=== PATIENT | female | born 1990 | race Caucasian/White ===

== ENCOUNTER 2018-01-05 20:45 | Emergency (ER) | payer BC, OTHER, SELFPAY ==
[2018-01-05 21:02] VITALS: BP 131/84; PULSE 66; RESP 20; TEMP 36.9; O2SAT 99
[2018-01-05 22:38] VITALS: BP 124/78; PULSE 72; RESP 18; O2SAT 100
--- NOTE | 2018-01-05 22:48 | ED.ABDPAIN ---
HPI - Abdominal Pain General Chief Complaint: Abdominal Pain Stated Complaint: STOMACH PAINS Time Seen by Provider: 01/05/18 21:46 Source: patient Mode of arrival: ambulatory Limitations: no limitations History of Present Illness HPI narrative: 27-year-old female here for evaluation of upper abdominal pain and vaginal bleeding. Patient states that her symptoms started approximately 3 days ago. She states she did have a at the end of last year. Was on oral control until the beginning of this year but stopped it because she had continuous bleeding. She states she has not had a menstrual cycle since then. She states she is breast feeding. Has had her appendix out. Has taken some Tylenol at home for the abdominal pain which has not helped. She states that the vaginal bleeding is very similar to what it was like after her . No fevers. No urinary symptoms no bowel changes. Related Data Home Medications Medication Instructions Recorded Confirmed Vitamins (PRENAVITE) 1 tab PO QDAY #0 06/19/16 Previous Rx's Medication Instructions Recorded clindamycin HCl 300 mg PO QID #28 cap 07/23/17 Allergies Allergy/AdvReac Type Severity Reaction Status Date / Time Penicillins [PENICILLINS] Allergy Unknown Unverified 09/23/17 12:39 Review of Systems Constitutional Denies fatigue and Denies fever(s) Cardiovascular Denies chest pain and Denies dyspnea Respiratory Denies dyspnea Gastrointestinal Gastrointestinal: Reports abdominal pain, Denies change in stool character, Denies coffee ground emesis, Denies diarrhea and Denies vomiting Genitourinary Reports abnormal vaginal bleeding, Denies dysuria and Denies flank pain Musculoskeletal Denies myalgias and Denies arthralgias Integumentary/Breasts Denies lesions and Denies rash Endocrine Denies fatigue [facility] Surgical History Status post appendectomy Status post surgery (06/29/17) Family History Grandmother Age: 79 Malignant neoplasm of female breast, unspecified laterality, unspecified site of breast Type 2 diabetes mellitus Cerebrovascular accident (CVA), unspecified mechanism Exam Initial Vital Signs Initial Vital Signs: Vital Signs Temperature 98.5 F 01/05/18 21:02 Pulse Rate 66 01/05/18 21:02 Respiratory Rate 20 01/05/18 21:02 Blood Pressure 131/84 H 01/05/18 21:02 Pulse Oximetry 99 01/05/18 21:02 Const General: cooperative, healthy appearing, well developed, well groomed and No acute distress Orientation: alert, awake and oriented x3 HENMT Head: normal to inspection, normocephalic and atraumatic GI Inspection: normal to inspection and non-distended Palpation: soft, No firm, No guarding and tender ( Epigastric) Skin General: no rashes or lesions noted Lesions: no lesions Rashes: no rashes Neuro General: alert, awake and oriented x3 Extrem General: normal to inspection Psych Appearance: grossly normal and well kempt Course Orders Ordered: ED Orders 01/05/18 23:07 Complete Blood Count AUTO DIFF Stat Comprehensive Metabolic Panel Stat Lipase Stat 01/05/18 23:10 Urine Microscopic Stat Discontinued Medications Hydrocodone Bitart/Acetaminophen ([place] 5/325) 1 tab PO NOW ONE Stop: 01/05/18 22:48 Last Admin: 01/05/18 23:07 Dose: 1 tab Vital Signs - 8 hr 01/05/18 21:02 01/05/18 22:38 01/06/18 00:16 Temperature 98.5 F 97.8 F Pulse Rate 66 72 53 L Respiratory Rate 20 18 16 Blood Pressure 131/84 H 110/74 Blood Pressure [Right Arm] 124/78 H Pulse Oximetry 99 100 99 MDM - Abdominal Pain Lab Data Attestation: I reviewed the patient's lab results. Result diagrams: 01/05/18 23:07 01/05/18 23:07 Lab Results 01/05/18 01/05/18 01/05/18 Range/Units 23:07 23:07 23:10 WBC 4.4 L (4.5-11.0) X10^3/uL RBC 4.38 (4.0-5.2) X10^6/uL Hgb 13.9 (12.0-16.0) g/dL Hct 39.8 (36-46) % MCV 90.8 (80-100) fL MCH 31.8 (26-34) PG MCHC 35.1 (30-36) % RDW 13.6 (11.6-14.8) % Plt Count 200 (150-400) X10^3/uL Neut % (Auto) 48.1 L (50-75) % Lymph % (Auto) 40.0 (25-40) % [place] % (Auto) 9.5 (3-14) % Eos % (Auto) 1.9 L (2-4) % Baso % (Auto) 0.5 (0-2) % Neut # (Auto) 2100 L (0757-7374) /uL Sodium 141 (137-145) mmol/L Potassium 3.7 (3.4-5.1) mmol/L Chloride 104 (98-107) mmol/L Carbon Dioxide 28 (22-32) mmol/L BUN 10 (7-17) mg/dL Creatinine 0.70 (0.52-1.04) mg/dL Estimated GFR > 60.0 (>60) mL/min BUN/Creatinine Ratio 14.3 (6-22) Glucose 85 (70-100) mg/dL Calcium 9.3 (8.4-10.2) mg/dL Total Bilirubin 1.8 H (0.2-1.3) mg/dL AST 16 (14-36) IU/L ALT 17 (9-52) IU/L Alkaline Phosphatase 89 (38-126) U/L Total Protein 6.6 (6.3-8.2) g/dL Albumin 4.2 (3.5-5.0) g/dL Globulin 2.4 (1.7-4.1) g/dL Albumin/Globulin Ratio 1.8 (1.0-2.8) Lipase 50 (23-300) U/L Urine RBC >100/hpf H (0-5/HPF) Urine WBC 0-1/hpf (0-5/HPF) Ur Squamous Epith Cells 5-10 /hpf H Calcium Oxalate Crystal Few H (None) Urine Bacteria Occasional (0-1) (None) Ur Culture Indicated? Cult not indicated Micro UA Comment Not Reportable Point of care testing: Point of Care Testing Test Results Negative Urine Dip Bedside Urine Glucose Negative Bedside Urine Bilirubin - Negative Bedside Urine Ketone - Negative Urine Specific [place] 1.020 Bedside Urine Occult Blood +++ Bedside Urine pH 6.0 Bedside Urine Protein + 30 Bedside Urine Urobilinogen - Negative Bedside Urine Nitrite - Negative Bedside Urine Leukocytes - Negative Esterase MDM Narrative Medical decision making narrative: test is negative. Urinalysis shows blood in the urine however no other signs of infection. Patient has a benign abdominal exam. Labs unremarkable. LFTs unremarkable. Considered gallbladder pathology however patient does not have Benedict sign and has normal LFTs and lipase. Patient has had her appendix out. Will hold on any radiologic studies for now. I suspect that her vaginal bleeding is a normal menstrual cycle versus breakthrough bleeding. She is not on any sort of control and has not had a period since the beginning of this year when she stopped control. Her abdominal pain does seem to be higher than what I would expect for menstrual cramps However this pain could be the result of that. Will hold on pelvic ultrasound for now. Patient reluctant to take medications secondary to the fact that she is breast feeding. We did discuss that the [place] that she received here in the emergency department would be excreted in her breast milk. I recommended that she pump and dump for the next 24 hr. We did discuss this prior to her taking the [place] And she expressed understanding and agreement. Patient was instructed to contact her primary care doctor for follow-up. No acute surgical pathology was found today. She expressed understanding and agreement with plan. Discharge Plan Departure Patient Disposition: Home, Self-Care Clinical Impression: Abdominal pain, Vaginal bleeding Discharge Date/Time: 01/06/18 00:18 Interventions: ED Discharge Assessment Last Done: 01/06/18 00:16 Instructions: DI for Abdominal Pain-Adult Activity Restrictions/Additional Instructions: would recommend that you take Tylenol/ acetaminophen and/or Motrin / ibuprofen for the abdominal pain. Call your OB doctor tomorrow for a follow-up in 2 discussed your vaginal bleeding and any potential control pills. Return to the emergency department for any new or worsening symptoms. Prescriptions: No Action Vitamins (PRENAVITE) 1 tab PO QDAY Qty: 0 RF: 0 clindamycin HCl 300 MG capsule 300 mg PO QID Qty: 28 RF: 0
[2018-01-05] MEDS: HYDROCODONE/ACET 5/325 TABLET 1 TAB PO (23:07)
--- NOTE | 2018-01-05 23:07 | PC.NURSE ---
pt given maria isabel correia per approval to emmie rowe. Lab at drawing blood
[2018-01-05 23:12] LABS: Add Manual Diff / Slide Review NO; Basophils Percent Auto 0.5 % (0-2); Eosinophils Percent Auto 1.9 % (2-4); Hematocrit 39.8 % (36-46); Hemoglobin 13.9 g/dL (12.0-16.0); Mean Corpuscular HGB Conc 35.1 % (30-36); Mean Corpuscular Hemoglobin 31.8 PG (26-34); Mean Corpuscular Volume 90.8 fL (80-100); Monocytes Percent Auto 9.5 % (3-14); Neutrophils Absolute Auto 2100 /uL (3000-5900); Neutrophils Percent Auto 48.1 % (50-75); Platelet Count 200 X10^3/uL (150-400); Red Blood Cell Count 4.38 X10^6/uL (4.0-5.2); Red Cell Distribution Width 13.6 % (11.6-14.8); White Blood Cell Count 4.4 X10^3/uL (4.5-11.0)
[2018-01-05 23:21] LABS: RBC Urine >100/HPF (0-5/HPF); Squamous Epithelial Cell Urine 5-10 /HPF; WBC Urine 0-1/HPF (0-5/HPF)
[2018-01-05 23:22] LABS: Bacteria Urine Occasional (0-1); Calcium Oxalate Crystals Urine Few; Culture Indicated Urine Cult Not Indicated
[2018-01-05 23:23] LABS: Alanine Aminotransferase 17 IU/L (9-52); Albumin 4.2 g/dL (3.5-5.0); Albumin Globulin Ratio 1.8 (1.0-2.8); Alkaline Phosphatase 89 U/L (38-126); Aspartate Aminotransferase 16 IU/L (14-36); BUN Creatinine Ratio 14.3 (6-22); Bilirubin Total 1.8 mg/dL (0.2-1.3); Blood Urea Nitrogen 10 mg/dL (7-17); Calcium 9.3 mg/dL (8.4-10.2); Carbon Dioxide 28 mmol/L (22-32); Chloride 104 mmol/L (98-107); Estimated Glomerular Filt Rate > 60.0 mL/min (>60); Globulin 2.4 g/dL (1.7-4.1); Glucose 85 mg/dL (70-100); HEMOLYSIS < 15 (0-50); Lipase 50 U/L (23-300); Potassium 3.7 mmol/L (3.4-5.1); Sodium 141 mmol/L (137-145); Total Protein 6.6 g/dL (6.3-8.2)
[2018-01-06 00:16] VITALS: BP 110/74; PULSE 53; RESP 16; TEMP 36.6; O2SAT 99
== END 2018-01-06 00:18 | disposition home or self-care (01) ==
PROVIDERS: Emergency Provider Emergency Medicine; Family Provider Specialist; PCP Specialist
DX: N93.9 Abnormal uterine and vaginal bleeding, unspecified (principal); R10.9 Unspecified abdominal pain
CPT/HCPCS: 36415; 80053; 81003; 81015; 81025; 83690; 85025; 99282; 99283

== ENCOUNTER → 2020-07-30 11:32 | Outpatient (CLI) | payer BC, SELFPAY ==
[2020-07-30 12:14] LABS: Appearance Urine UA CLEAR; Bilirubin Urine UA NEGATIVE (NEGATIVE); Color Urine UA YELLOW; Glucose Urine UA NEGATIVE (Negative); Ketones Urine UA NEGATIVE (NEGATIVE); Leukocyte Esterase Urine UA NEGATIVE (NEGATIVE); Nitrite Urine UA NEGATIVE (Negative); Occult Blood Urine UA NEGATIVE (Negative); Protein Urine UA NEGATIVE (Negative)
[2020-07-30 12:35] LABS: Add Manual Diff / Slide Review NO; Basophils Absolute Auto 0 /uL (0-100); Basophils Percent Auto 0.3 % (0-2); Eosinophils Absolute Auto 0 /uL (0-450); Eosinophils Percent Auto 0.5 % (2-4); Hematocrit 40.4 % (36-46); Hemoglobin 14.6 g/dL (12.0-16.0); Lymphocytes Absolute Auto 1400 /uL (1100-4500); Lymphocytes Percent Auto 22.9 % (25-40); Mean Corpuscular HGB Conc 36.1 % (30-36); Mean Corpuscular Hemoglobin 32.5 PG (26-34); Mean Corpuscular Volume 90.1 fL (80-100); Monocytes Absolute Auto 300 /uL (0-900); Monocytes Percent Auto 5.6 % (3-14); Neutrophils Absolute Auto 4200 /uL (1500-7000); Neutrophils Percent Auto 70.7 % (50-75); Platelet Count 232 X10^3/uL (150-400); Red Blood Cell Count 4.49 X10^6/uL (4.0-5.2); Red Cell Distribution Width 13.4 % (11.6-14.8)
[2020-07-30 15:47] LABS: Hepatitis B Surface Antigen NEGATIVE s/c (NEGATIVE); Rubella Antibody IgG 51.9 IU/mL (>15)
[2020-07-30 16:10] LABS: HIV 1 & 2 Ab/Ag 4th Gen Combo NEGATIVE (NEGATIVE); Hep C Virus Ab w/Reflex Quant NEGATIVE s/c (NEGATIVE)
[2020-07-30 16:12] LABS: Urine N gonorrhoeae NOT DETECTED
[2020-07-30 16:18] LABS: Urine Chlamydia NOT DETECTED
[2020-07-31 08:13] LABS: RPR Screen Non Reactive (Non Reactive)
[2020-07-31 11:51] LABS: Varicella IgG Antibody 2514 index (Immune >165)
== END ==
PROVIDERS: Family Provider Specialist; Referring Provider Specialist; Visit Provider Specialist
DX: Z34.81 Encounter for supervision of other normal pregnancy, first trimester (principal); Z3A.08 8 weeks gestation of pregnancy
CPT/HCPCS: 36415; 80055; 81003; 86787; 86803; 86850; 86900; 86901; 87086; 87389; 87491; 87591

== ENCOUNTER → 2020-09-26 11:55 | Outpatient (CLI) | payer BC, SELFPAY ==
[2020-09-28 19:38] LABS: AFP, Serum 46.8 ng/mL (.); Calc Gestational Age Ultrasound (.); Estriol, Free 1.23 ng/mL (.); Inhibin A, Dimeric 134.44 pg/mL (.); Inhibin A, MoM 0.86 (.); Maternal Ethnicity Caucasian (.); Maternal Weight 147 lbs (.); Number of Fetuses No (.); OSBR Risk 1 IN 6916 (.); Results Report (.); Test Results *Screen Negative* (.); hCG, MoM 1.43 (.); hCG, Serum 47654 mIU/mL (.)
== END ==
PROVIDERS: Family Provider Specialist; Referring Provider Specialist; Visit Provider Specialist
DX: Z34.82 Encounter for supervision of other normal pregnancy, second trimester (principal); Z3A.17 17 weeks gestation of pregnancy
CPT/HCPCS: 36415; 82105; 82677; 84702; 86336

== ENCOUNTER → 2020-10-17 10:26 | Outpatient (CLI) | payer BC, SELFPAY ==
--- NOTE | 2020-10-17 10:27 | DI.US.S_ITS ---
PROCEDURE: US OB >= 14 WEEKS FETUS INDICATIONS: 20 week anatomy OUTSIDE/PRIOR DATING DATA: Last menstrual period (LMP): 05/29/2020 . LMP-based estimated date of delivery (GARCIA): 03/05/2021 . First dating scan (date and location): 07/30/2020, [facility] . Estimated date of delivery (GARCIA) from first dating scan: 03/06/2021 . TECHNIQUE: Real-time scanning was performed of the fetus, with image documentation and biometric measurements. COMPARISON: None. FINDINGS: General: A single living intrauterine gestation is present. Presentation: Vertex. Placenta: Placental position is fundal , without previa. Amniotic fluid index: 12.1 cm, normal range is 5-24 cm. heart rate: 137 beats per minute. Maternal cervical canal: 4.3 cm long. Normal lower limit is 2.5 cm. biometrics: Biparietal diameter: 4.7 cm, 20 week 2 day Head circumference: 17.4 cm, 20 week 0 day Abdominal circumference: 15.8 cm, 20 week 6 day Femur length: 3.5 cm, 21 week 0 day Estimated gestational age from initial scan: 20 week 0 day Composite gestational age from present scan: 20 week 4 day Estimated weight and percentile: 378, 87 percentile Measurement variability for biometric dating: +/- 7 days from 14 weeks to 15 weeks 6 days gestation, +/- 10 days from 16 weeks to 21 weeks 6 days gestation, +/- 2 weeks from 22 weeks to 27 weeks 6 days gestation, +/- 3 weeks for 28 weeks gestation or later. weight reference: 4500 g or EFW >90/95% is considered macrosomia or large for gestational age. EFW <10% is small for gestational age. EFW 5% or less is considered intra-uterine growth restriction. Anatomic survey: Neuro: Ventricles are non-dilated at less than 10 mm. Cisterna magna is normal at 3-11 mm. Cerebellum is normal in size and morphology. Nuchal skin fold: Normal at less than 6 mm between 14-21 weeks gestational age. Face: Nose and lips, facial profile are normal. Spine: No evidence for spina bifida. Heart: 4-chambered heart is present, with normal ventricular outflow tracts. Diaphragm: Diaphragm is intact. Stomach: Left-sided stomach is present. Kidneys: No hydronephrosis. Normal is less than 5 mm in 2nd trimester, less than 7 mm in 3rd trimester. Cord: 3-vessel cord has orthotopic insertion. Bladder: Normal in size. Extremities: All 4 extremities identified. IMPRESSION: Single live intrauterine consistent with a 20 week 4 day gestation Dictated by: Last Bond M.D. on 10/17/2020 at 11:53 Approved by: Last Bond M.D. on 10/17/2020 at 12:03
== END ==
PROVIDERS: Family Provider Specialist; Referring Provider Specialist; Visit Provider Specialist
DX: Z34.82 Encounter for supervision of other normal pregnancy, second trimester (principal); Z3A.20 20 weeks gestation of pregnancy
CPT/HCPCS: 76811

== ENCOUNTER → 2020-11-30 14:52 | Outpatient (CLI) | payer BC, SELFPAY ==
[2020-11-30 16:28] LABS: Hematocrit 35.2 % (36-46); Hemoglobin 12.5 g/dL (12.0-16.0)
[2020-11-30 16:52] LABS: GTT (PREG) 1 Hour PP 50gm Dose 82 mg/dL (76-139)
== END ==
PROVIDERS: Family Provider Specialist; PCP Family Medicine; Referring Provider Specialist; Visit Provider Specialist
DX: Z34.82 Encounter for supervision of other normal pregnancy, second trimester (principal); Z3A.21 21 weeks gestation of pregnancy
CPT/HCPCS: 36415; 82950; 85014; 85018

== ENCOUNTER → 2021-02-07 11:26 | Outpatient (CLI) | payer BC, SELFPAY ==
[2021-02-08 09:27] LABS: Strep Grp B PCR NEG for Grp B Strep
== END ==
PROVIDERS: Family Provider Specialist; PCP Family Medicine; Referring Provider Specialist; Visit Provider Specialist
DX: Z34.83 Encounter for supervision of other normal pregnancy, third trimester (principal); Z3A.36 36 weeks gestation of pregnancy
CPT/HCPCS: 87653

== ENCOUNTER 2021-02-20 23:47 | Outpatient (CLI) | payer BC, SELFPAY | END 2021-02-21 00:40 | disposition home or self-care (01) | LOC: LABOR 02-21 00:13 → OB 02-25 06:52 | PROVIDERS: Family Provider Specialist; PCP Family Medicine; Referring Provider Family Medicine; Visit Provider Family Medicine | DX: O26.893 Other specified pregnancy related conditions, third trimester (principal); N89.8 Other specified noninflammatory disorders of vagina; Z3A.38 38 weeks gestation of pregnancy | CPT/HCPCS: 59025; 84112; G0378; G0379 ==

== ENCOUNTER 2021-03-01 04:30 | Inpatient (IN) | payer BC, SELFPAY ==
--- NOTE | 2021-03-01 | PATH_ITS ---
[facility] Accession Number: [id number] . 01 Material submitted: . fallopian tube - BILATERAL FALLOPIAN TUBES . 01 Clinical history: . REPEAT W/BILATERAL SALPINGECTOMIES . 02 Diagnosis: Bilateral Fallopian Tubes, Bilateral Salpingectomies: Bilateral fimbriated fallopian tubes. No evidence of neoplasm. MRV 03/05/2021 1240 Local . 02 Electronically signed: . Prieto Donahue MD, PhD, Pathologist NPI- [id number] . 01 Gross description: . The specimen is received in formalin, labeled bilateral fallopian tubes, and consists of two fallopian tubes measuring 7.1 cm in length by 0.9 cm in diameter and 8.7 cm in length by 0.9 cm in diameter. The serosa is pink-purple and smooth. Sectioning reveals a weldon-pink mucosa and a stellate lumen measuring 0.3 cm in diameter. Manager Action sections of each fallopian tube are submitted, to include the en face margin (blue), central cross-sections, and bisected fimbriae in cassettes A1-A2. ([id number]) /[facility] 03/02/2021 1357 Local . 02 Pathologist provided ICD-10: Z3A.39, Z30.2 . 02 CPT . 615690 Performed at: 01 [facility] [address] [facility], [place], [place] [id number] MD Wellington Renee MD Phone: [phone] Performed at: 02 [facility] [address] [place], [place] [id number] MD Dorys Caldwell MD Phone: [phone]
[2021-03-01 05:14] VITALS: BP 105/69
[2021-03-01] MEDS: fentaNYL 100 MCG/2 ML INJ IV (05:52)
[2021-03-01 05:57] LABS: COVID19 - ADMIT (NP swab/PCR) Negative (Negative)
[2021-03-01] MEDS: TERBUTALINE 1 MG/ML VIAL 0.25 MG SUBCUT (06:03)
[2021-03-01 06:21] LABS: Add Manual Diff / Slide Review NO; Basophils Absolute Auto 0 /uL (0-100); Basophils Percent Auto 0.4 % (0-2); Eosinophils Absolute Auto 100 /uL (0-450); Eosinophils Percent Auto 0.8 % (2-4); Hemoglobin 14.3 g/dL (12.0-16.0); Lymphocytes Absolute Auto 2300 /uL (1100-4500); Lymphocytes Percent Auto 22.2 % (25-40); Mean Corpuscular HGB Conc 34.1 % (30-36); Mean Corpuscular Hemoglobin 32.4 PG (26-34); Mean Corpuscular Volume 95.1 fL (80-100); Monocytes Absolute Auto 1000 /uL (0-900); Monocytes Percent Auto 9.7 % (3-14); Neutrophils Absolute Auto 7000 /uL (1500-7000); Neutrophils Percent Auto 66.9 % (50-75); Platelet Count 157 X10^3/uL (150-400); Red Blood Cell Count 4.41 X10^6/uL (4.0-5.2); Red Cell Distribution Width 15.2 % (11.6-14.8); White Blood Cell Count 10.5 X10^3/uL (4.5-11.0)
--- NOTE | 2021-03-01 06:46 | P.HPOB_ITS ---
OB HPI Date/Time Date of admission: 03/01/21 Date Patient Seen: 03/01/21 Time Patient Seen: 06:46 History of Present Condition Chief complaint: REPEAT W/BILATERAL SALPINGECTOMIES : 2 Para: 1 Estimated Date of Delivery: 03/06/21 Narrative: Daniella Gonzalez is a 30 year old female admitted with spontaneous rupture membranes and contractions with planned section today with bilateral salpingectomies for sterilization Indications Operative indications ( section): previous uterine surgery History of Present care: good care, initiated at week # (8), number of visits (12) and pounds weight gain (42) Dating criteria: LMP confirmed by 1st trimester US Ultrasounds: normal mid trimester US Obstetrical complications: none Preadmission Labs Blood type: B (+) positive -: Antibody screen: negative, GBS status: negative, HBsAG: negative, HIV: negative and RPR/VDLR: negative -: Chlamydia screen: not detected and Gonorrhea screen: not detected -: Rubella: immune and Varicella: immune HCAB: negative Quad screen: Normal 1 hr GTT: 82 Prior (ies) History: 04/19/2017 40 week gestation 9 lb 5 oz for failure to progress, male Evaluation Evaluation Baseline heart rate: 140 Variability: Moderate (11-25) monitor accelerations: Present Monitor Decelerations: Absent Contraction Frequency (minutes): 4 Uterine Contraction Intensity: Moderate Category of Tracing: Reactive Status: Category l [facility] Medical History (Updated 01/16/21 @ 15:10 by Lui Good MD) Anemia due to blood loss, acute Closed fracture of coccyx (~2005) Delivery by section of full-term infant Fracture of thumb, right, closed (~2009) Migraines (~2011) Pneumonia (~08/2019) hemorrhage, delayed (> 24 hrs) Right wrist fracture (~2009) Surgical History (Updated 07/19/20 @ 13:24 by Argentina Mayorga RN) Status post appendectomy (~2011) Status post surgery (06/29/17) [place] teeth extracted (~2009) Family History (Updated 07/19/20 @ 13:35 by Argentina Mayorga RN) Grandmother Age: 82 Malignant neoplasm of female breast, unspecified laterality, unspecified site of breast Type 2 diabetes mellitus Cerebrovascular accident (CVA), unspecified mechanism Mother Hypertension Father No problems noted. Grandfather No problems noted. Grandmother Arthritis Grandfather Pacemaker Social History marital status: number of children: 1 household members: spouse and children lives independently: Yes caregiver/support person: No housing: house pets and animals: Yes (1 cat: aware of precautions; safe with baby.) education level: vocational ([employer]) occupational status: employed current occupational exposures/hazards: Yes (Hair color. Wears gloves & well ventilated.) special silke needs: No seatbelt use: always Smoking Status: Never smoker second hand exposure: No alcohol intake: former (Occasional, pre-.) substance use type: does not use during the past year weight has: remained stable well-balanced diet: daily or most days daily servings fruits/ve-4 caffeine: Yes Type(s) of exercise: walking, bicycling (Cycles 4 times a week. ), running and normal ROM and activity (Active with Toddler.) frequency: daily duration: 30-45 minutes/day Meds Home Medications and Allergies Home Medications Medication Instructions Recorded Confirmed Type prenat.vits,jose,ame-djic-jjiha 1 tab PO DAILY 07/19/20 03/01/21 History Allergies Allergy/AdvReac Type Severity Reaction Status Date / Time Penicillins [PENICILLINS] AdvReac Unknown Unknown Verified 01/16/21 14:35 Review of Systems Review of Systems Narrative: Patient had spontaneous rupture membranes at 2:30 a.m.. She began having painful contractions. No abdominal pain in between the contractions. No headaches, scotomata, epigastric pain. Good movement. Exam Vital Signs (past 8 hours): Blood pressure 105/69, pulse of 83, temperature 35.7? 03/01/21 05:14 Blood Pressure 105/69 Narrative Exam Narrative: HEENT within normal limits. Lungs are clear to auscultation percussion. Heart is regular rate rhythm no S3, S4 murmurs. Abdomen is soft, nontender. Fetus is vertex. Extremities without edema and nontender. Objective Labs Result Diagrams: 03/01/21 05:15 Labs: Laboratory Results - last 24 hr 03/01/21 03/01/21 05:00 05:15 WBC 10.5 RBC 4.41 Hgb 14.3 Hct 42.0 MCV 95.1 MCH 32.4 MCHC 34.1 RDW 15.2 H Plt Count 157 Neut % (Auto) 66.9 Lymph % (Auto) 22.2 L [place] % (Auto) 9.7 Eos % (Auto) 0.8 L Baso % (Auto) 0.4 Neut # (Auto) 7000 Lymph # (Auto) 2300 [place] # (Auto) 1000 H Eos # (Auto) 100 Baso # (Auto) 0 SARS-CoV-2 (PCR) Negative Assessment and Plan Assessment and Plan Assessment and Plan narrative: 39 week gestation in labor with repeat section planned and bilateral tubal ligation
--- NOTE | 2021-03-01 06:46 | PM.PREOP ---
Pre-operative Note COVID-19 COVID-19 status: Negative Result date/Date tested (Pos, Neg/Pending): 03/01/21 Interval Note History & Physical reviewed/Exam performed by Physician: Yes Changes to H&P: No
[2021-03-01] MEDS: CITRIC ACID/SODIUM CITRATE 15 ML SOLUTION 30 ML PO (07:22)
[2021-03-01] MEDS: ONDANSETRON 4 MG/2 ML INJ IV (07:22)
--- NOTE | 2021-03-01 07:31 | SUR.OPER ---
Supine on Padded OR bed, head on pillow, safety belt at thigh, arms secured on padded arm boards at <90 degrees abduction. Bump under right buttock. Legs uncrossed with pillow under knees, gel pad to heels, tape over blanket to lower legs.
[2021-03-01] MEDS: CEFAZOLIN 1 GM VIAL 2 GM IV (08:10)
--- NOTE | 2021-03-01 08:21 | SUR.OPER ---
Viable male delivered via section at 08:20. Cord blood vials x2 and placenta sent with L&D RN.
[2021-03-01] MEDS: LACTATED RINGERS 1,000 ML 120 ML IV (08:50)
[2021-03-01 09:19] VITALS: BP 105/63; PULSE 72; RESP 12; TEMP 36.3; O2SAT 100
[2021-03-01 09:24] VITALS: BP 97/58; PULSE 78; RESP 13; O2SAT 100
--- NOTE | 2021-03-01 09:26 | P.OP_ITS ---
Operative Date/Time/Diagnoses Date of procedure: 03/01/21 Time of procedure: 09:26 Pre-op diagnosis: 39 week gestation with previous section in active labor with wish for sterilization Post-op diagnosis: same Procedure & Clinicians Procedure: Repeat low-transverse section with bilateral salpingectomy Same procedure as scheduled: Yes Indications: Prior section in active labor with wish for sterilization Surgeon: Sheree Edmonds Commodity Buyer: Lui Good Click Yes if Unassisted: No Anesthesia Type: Spinal Operative Notes Findings: Normal tubes, ovaries, uterus. Viable male weighing 8 lb 6 oz with Apgars of 9 and 9 Closure Type: primary Specimen(s): other (Bilateral fallopian tubes) Applied: catheter (Padilla) Estimated Blood Loss (mL): 500 Blood products transfused: none Procedure in detail: The patient was brought to the operating room where she underwent a spinalfor anesthesia. She was placed in a supine position with a left lateral tilt. A [place] catheter was placed. Pulsatile stockings were placed and functional throughout the case. 2 g of Ancef were given IV prior to the incision. Warming was in place. The patient was prepped and draped in usual sterile fashion. A low transverse incision was made with a scalpel and the incision was carried down to the fascial layer which was incised transversely with scissors. The housing assistant property manager did his side of the incision. The midline attachments are superiorly and inferiorly. Some bleeding was controlled Bovie. The rectus muscles were in the midline and the peritoneal incision was ma de with no damage to internal structures. The peritoneum was incised and superiorly and inferiorly. The incision was stretched with the surgeon and housing assistant property manager placing traction. Bladder blade was placed and a bladder flap was developed and the bladder held away from the lower uterine segment. An incision was made in the uterus with the scalpel and the incision was extended with stretching. The head was elevated out of the abdomen and with fundal pressure by the housing assistant property manager the baby was delivered. The infant was bulb suctioned for clear fluid and handed off to the warmer. Cord blood was collected. The placenta delivered spontaneously with traction. The uterus was cleaned with clean laps. The uterine incision was closed in 2 layers of 0 chromic suture the first a running locking layer the second an imbricating layer. The housing assistant property manager was helping to expose the incision. The bladder peritoneum was repaired with 2- 0 Vicryl suture. The tubes and ovaries were observed to be normal. Left fallopian tube was grasped with a Swetha and sequential bites taken on the mesosalpinx and sutured with 2 0 Vicryl suture. The fallopian tube was tied off and removed at the cornua. Same procedure performed on the right side. Gutters were cleaned of any remaining fluids and adequate hemostasis was noted. The perineum was closed with 2-0 Vicryl suture. The fascia layer was closed with 0 Vicryl suture with 2 stitches. The housing assistant property manager repairing half the incision with helping to retract and expose the incision for the other half. The incision was irrigated and adequate hemostasis noted. The incision was closed with interrupted 3-0 Vicryl sutures and then a subcuticular stitch of 4-0 Vicryl suture. Steri-Strips were placed. The uterus was massaged to remove any clots. The patient went to recovery room in good condition. Counts of instruments and sponges were correct. Dr. Good was present throughout the case to assist with retraction, fundal pressure to deliver the , and suturing half the fascia. Complications: none Post-operative Condition: stable Disposition: other ( center) Plan for aftercare: Routine post section
[2021-03-01 09:29] VITALS: BP 105/51; PULSE 105; RESP 12; O2SAT 100
[2021-03-01 09:34] VITALS: BP 100/63; PULSE 81; RESP 12; TEMP 36.2; O2SAT 100
[2021-03-01] MEDS: LACTATED RINGERS 1,000 ML 1000 ML IV (10:10)
[2021-03-01] MEDS: diphenhydrAMINE 50 MG/ML VIAL 25 MG IV (11:44)
[2021-03-01] MEDS: KETOROLAC 30 MG/ML VIAL IV ×2 (14:42→20:51)
[2021-03-01] MEDS: ACETAMINOPHEN 325 MG TABLET 650 MG PO (19:44)
[2021-03-02] MEDS: KETOROLAC 30 MG/ML VIAL IV (03:06)
[2021-03-02] MEDS: ACETAMINOPHEN 325 MG TABLET 650 MG PO ×3 (03:10→20:42)
[2021-03-02] MEDS: OXYCODONE IR 5 MG TABLET PO (06:35)
[2021-03-02 07:04] LABS: Add Manual Diff / Slide Review NO; Basophils Absolute Auto 0 /uL (0-100); Basophils Percent Auto 0.3 % (0-2); Eosinophils Absolute Auto 0 /uL (0-450); Eosinophils Percent Auto 0.4 % (2-4); Hematocrit 33.2 % (36-46); Hemoglobin 11.6 g/dL (12.0-16.0); Lymphocytes Absolute Auto 1700 /uL (1100-4500); Lymphocytes Percent Auto 13.5 % (25-40); Mean Corpuscular Hemoglobin 32.6 PG (26-34); Monocytes Absolute Auto 900 /uL (0-900); Monocytes Percent Auto 6.8 % (3-14); Neutrophils Absolute Auto 10200 /uL (1500-7000); Platelet Count 134 X10^3/uL (150-400); Red Blood Cell Count 3.57 X10^6/uL (4.0-5.2); Red Cell Distribution Width 15.1 % (11.6-14.8); White Blood Cell Count 12.9 X10^3/uL (4.5-11.0)
[2021-03-02] MEDS: DOCUSATE 100 MG CAPSULE 200 MG PO (09:02)
[2021-03-02] MEDS: FERROUS SULFATE 325 MG TABLET PO (09:02)
[2021-03-02] MEDS: IBUPROFEN 600 MG TABLET PO ×3 (09:02→20:42)
--- NOTE | 2021-03-02 09:19 | P.PNOB_ITS ---
Subjective - OB Subjective Patient comments: incisional pain, tolerating diet and other ( Itching likely from spinal narcotic) [place] baby status: doing well and nursing well [place] feeding status: exclusively breast feeding Time Patient Seen: 09:19 Interval history: Postoperative day 1repeat low-transverse section with bilateral salpingectomy Exam Vital Signs (past 8 hours): blood pressure 108/55, pulse of 91, temperature 36.3? Oxygen Delivery Method Room Air Narrative Exam Narrative: Abdomen is soft, nontender. Uterus is firm, at U, appropriately tender. Dressing is clean, dry, intact. Mild lochia. Extremities without edema and nontender. Objective Labs Result Diagrams: 03/02/21 07:00 Labs: Laboratory Results - last 24 hr 03/02/21 07:00 WBC 12.9 H RBC 3.57 L Hgb 11.6 L Hct 33.2 L MCV 93.0 MCH 32.6 MCHC 35.0 RDW 15.1 H Plt Count 134 L Neut % (Auto) 79.0 H Lymph % (Auto) 13.5 L [place] % (Auto) 6.8 Eos % (Auto) 0.4 L Baso % (Auto) 0.3 Neut # (Auto) 14389 H Lymph # (Auto) 1700 [place] # (Auto) 900 Eos # (Auto) 0 Baso # (Auto) 0 Assessment & Plan Plan day: 1 plan OB: routine postop care Time Spent With Patient Time: Total time spent is greater than 50% in coordination of care (as documented) at patient's floor/unit and/or counseling patient: Time with patient: less than 15 minutes
[2021-03-02] MEDS: OXYCODONE IR 5 MG TABLET 10 MG PO (10:41)
[2021-03-02] MEDS: OXYCODONE IR 10 MG TABLET PO ×3 (14:38→22:58)
[2021-03-03] MEDS: OXYCODONE IR 10 MG TABLET PO ×3 (03:51→12:31)
[2021-03-03] MEDS: IBUPROFEN 600 MG TABLET PO ×2 (03:51→10:54)
[2021-03-03] MEDS: ACETAMINOPHEN 325 MG TABLET 650 MG PO ×2 (06:35→12:45)
[2021-03-03 07:11] VITALS: BP 100/63; PULSE 81; RESP 12; TEMP 36.2
[2021-03-03] MEDS: FERROUS SULFATE 325 MG TABLET PO (08:00)
[2021-03-03] MEDS: DOCUSATE 100 MG CAPSULE 200 MG PO (08:00)
--- NOTE | 2021-03-03 08:54 | PM.OBDS.1 ---
Discharge Providers Provider Date of admission: 03/01/21 04:30 Discharge Date: 03/03/21 Primary care physician: Kenna Koch MD Consults: 03/01/21 10:10 Consult to Thermodynamics Engineer Routine Comment: Discharge provider: Sheree Edmonds MD Summary Hospital Course Date Patient Seen: 03/03/21 Time Patient Seen: 08:54 Diagnoses: 39 week gestation prior and wish for sterilization Hospital Course: Patient arrived in Labor and delivery in labor. She underwent a repeat section and bilateral tubal resection for sterilization on 03/01/21. Peripartum Data Delivery Method: Section ( repeat low-transverse section) Procedures: Repeat low-transverse section and bilateral salpingectomies complications: none 1: Gender: Male Disposition of : home Discharge Diagnosis (1) Delivery by section: Status: Acute (2) Sterilization: Status: Acute Problem Details: Bilateral salpingectomy Status at Discharge Cognitive/behavioral status at discharge: oriented Functional status at discharge: independent ambulation Overall status at discharge: patient is progressing back to baseline Time Spent with Patient Time attestation: Total time spent providing and/or coordinating discharge services: Time spent: Less than 30 minutes Objective Labs Result Diagrams: 03/02/21 07:00 Exam Vital Signs (past 8 hours): Blood pressure 102/55, pulse of 82, temperature 36? point Oxygen Delivery Method Room Air Narrative Exam Narrative: Abdomen is soft, nontender. Uterus is firm, at U, nontender. Dressing is clean, dry, intact. Mild lochia. Extremities without edema and nontender. Patient is Rh positive, rubella immune, received Tdap in the 3rd trimester. Discharge Plan Discharge Plan Patient Disposition: Home Discharge orders & Medications Prescriptions: New docusate sodium 100 mg Capsule 200 mg PO DAILY Qty: 20 RF: 0 ibuprofen 600 mg Tablet 600 mg PO Q6H PRN (Reason: Fever/Mild Pain (1-3)) Qty: 30 RF: 0 oxycodone 10 mg Tablet 10 mg PO Q4HR PRN (Reason: Pain, Severe (7-10)) Qty: 30 RF: 0 Continued prenat.vits,jose,[id number] Tablet 1 tab PO DAILY RF: 0 Follow up/Referrals: Kenna Koch MD [Primary Care Provider] - Sheree Edmonds MD [Family Provider] - 1 Week (aquacel removal nurse visit ok) Diet/Activity/Treatments Diet: Regular Skin/Wound/Dressing Care Report to your healthcare provider any signs of infection, such as:: chills, fever and increased pain Dressing: leave dressing on until 1 week postop appointment Discharge Data Primary Care Provider: Kenna Koch
[2021-03-03 09:08] VITALS: BP 100/63; PULSE 81; RESP 12; TEMP 36.2
[2021-03-03 12:45] VITALS: TEMP 36
== END 2021-03-03 13:15 | disposition home or self-care (01) | DRG 785 ==
PROVIDERS: Admitting Provider Specialist; Family Provider Specialist; PCP Family Medicine; Referring Provider Specialist; Visit Provider Specialist
PROC: 10D00Z1 Extraction of Products of Conception, Low, Open Approach (ICD-10-PCS; CPT 59514; principal; 2021-03-01 07:45)
DX: O75.82 Onset (spontaneous) of labor after 37 completed weeks of gestation but before 39 completed weeks gestation, with delivery by (planned) cesarean section (principal); Z30.2 Encounter for sterilization; Z37.0 Single live birth; Z3A.39 39 weeks gestation of pregnancy; Z20.822 Contact with and (suspected) exposure to COVID-19
CPT/HCPCS: 36415; 58611; 59050; 59510; 59514; 85025; 86850; 86900; 86901; 87635; C9803; J0690; J1200; J1885; J2274; J2405; J2590; J3010